=== PATIENT | female | born 1955 | race Caucasian/White ===

== ENCOUNTER 2017-12-02 22:06 | Emergency (ER) | payer OTHER ==
[2017-12-02] MEDS ORDERED: ACETAMINOPHEN 500 MG TAB PO ONE (22:32)
--- NOTE | 2017-12-02 22:33 | EDPHY ---
H & P Smoking Status: Never smoked Time Seen by Provider: 12/02/17 22:23 HPI/ROS: CHIEF COMPLAINT: Headache and elevated blood pressure HISTORY OF PRESENT ILLNESS: Patient is a 60-year-old female with a prior history of hypertension no longer taking medication here with complaint of headache starting approximately 2 hr prior to arrival in the emergency room. She did have a blood pressure cuff at home because of prior history of hypertension and checked her blood pressure was noted to be 200/100. Onset of the headache was gradual. She denies any numbness or weakness or associated chest pain. She does report that for the last week he has had left chest wall pain after twisting while lifting something and feeling a pop in the left side of her chest. She has no cardiac history other than hypertension including no history of diabetes, smoking, dyslipidemia. She has no history of aneurysms. She has no history of pulmonary embolism. REVIEW OF SYSTEMS: Constitutional: No fever, no chills. Eyes: No discharge. ENT: No sore throat. Cardiovascular: No chest pain, no palpitations. Respiratory: No cough, no shortness of breath. Gastrointestinal: No abdominal pain, no vomiting. Genitourinary: No hematuria. Musculoskeletal: No back pain. Skin: No rashes. Neurological: + headache. (Nabil Roth) Physical Exam: General Appearance: Alert and no distress. Eyes: Pupils equal and round no injection. Respiratory: Chest is nontender, lungs are clear to auscultation. Cardiac: regular rate and rhythm. Gastrointestinal: Abdomen is soft and nontender, no masses, bowel sounds normal. Musculoskeletal: Neck is supple and nontender. Extremities have full range of motion and are nontender. Skin: No rashes or lesions. (Nabil Roth) Constitutional: Initial Vital Signs Temperature (C) 36.5 C 12/02/17 22:10 Heart Rate 72 12/02/17 22:10 Respiratory Rate 16 12/02/17 22:10 Blood Pressure 188/91 H 12/02/17 22:10 O2 Sat (%) 96 12/02/17 22:10 O2 Delivery Mode Room Air Allergies/Adverse Reactions: No Known Allergies Allergy (Unverified 12/02/17 22:09) Home Medications: Medication Instructions Recorded NK [No Known Home Meds] 12/02/17 Medical Decision Making - Diagnostics Imaging Results: Imaging Impressions Chest X-Ray 12/02/17 22:31 IMPRESSION: No evidence for acute cardiopulmonary abnormality. Head CT 12/02/17 22:32 Impression: No evidence for acute intracranial abnormality. Minimal deep hemispheric white matter change can be seen with small vessel ischemic disease. Results called and discussed with Nabil Roth PA-C, at 12/02/2017 23:08. ED Course/Re-evaluation: 62-year-old female here with headache and elevated blood pressure. CT scan of the head reveals no acute mass or bleed. Given that this is done within 2 hr of the onset of her headache do feel she needs a lumbar puncture to rule out subarachnoid hemorrhage. She has no focal neurologic deficits on exam. EKG does show a bundle branch block but no ischemic changes. Troponin is negative for ACS. Her headache improved after treatment with migraine cocktail and her blood pressure came down to 165 systolic. She was discharged with primary care follow-up. (Nabil Roth) PHYSICIAN DOCUMENTATION: The patient was evaluated and managed by the Physician Managing Partner. My co- signature indicates that I have reviewed this chart and I agree with the findings and plan of care as documented. I am the secondary supervising physician. (Daija Cardozo) Differential Diagnosis: Subarachnoid hemorrhage, hypertensive urgency, ACS aortic dissection, brain mass (Nabil Roth) - Data Points Laboratory Results: Laboratory Results 12/02/17 22:40 12/02/17 22:40 12/02/17 12/02/17 12/02/17 22:52 22:40 22:40 WBC 7.62 10^3/uL 10^3/uL (3.80-9.50) RBC 4.92 10^6/uL 10^6/uL (4.18-5.33) Hgb 15.4 g/dL g/dL (12.6-16.3) Hct 46.2 % % (38.0-47.0) MCV 93.9 fL fL (81.5-99.8) MCH 31.3 pg pg (27.9-34.1) MCHC 33.3 g/dL g/dL (32.4-36.7) RDW 11.9 % % (11.5-15.2) Plt Count 263 10^3/uL 10^3/uL (150-400) MPV 9.1 fL fL (8.7-11.7) Neut % (Auto) 52.4 % % (39.3-74.2) Lymph % (Auto) 37.9 % % (15.0-45.0) [place] % (Auto) 7.5 % % (4.5-13.0) Eos % (Auto) 1.4 % % (0.6-7.6) Baso % (Auto) 0.5 % % (0.3-1.7) Nucleat RBC Rel Count 0.0 % % (0.0-0.2) Absolute Neuts (auto) 3.99 10^3/uL 10^3/uL (1.70-6.50) Absolute Lymphs (auto) 2.89 10^3/uL 10^3/uL (1.00-3.00) Absolute Monos (auto) 0.57 10^3/uL 10^3/uL (0.30-0.80) Absolute Eos (auto) 0.11 10^3/uL 10^3/uL (0.03-0.40) Absolute Basos (auto) 0.04 10^3/uL 10^3/uL (0.02-0.10) Absolute Nucleated RBC 0.00 10^3/uL 10^3/uL (0-0.01) Immature Gran % 0.3 % % (0.0-1.1) Immature Gran # 0.02 10^3/uL 10^3/uL (0.00-0.10) Sodium 141 mEq/L mEq/L (135-145) Potassium 3.8 mEq/L mEq/L (3.3-5.0) Chloride 106 mEq/L mEq/L (97-110) Carbon Dioxide 27 mEq/l mEq/l (22-31) Anion Gap 8 mEq/L mEq/L (8-16) BUN 18 mg/dL mg/dL (7-23) Creatinine 0.6 mg/dL mg/dL (0.6-1.0) Estimated GFR > 60 Glucose 117 mg/dL H mg/dL (70-100) Calcium 10.0 mg/dL mg/dL (8.5-10.4) Total Bilirubin 0.9 mg/dL mg/dL (0.1-1.4) AST 28 IU/L IU/L (14-46) ALT 25 IU/L IU/L (9-52) Alkaline Phosphatase 83 IU/L IU/L (38-126) POC Troponin I 0.02 ng/mL ng/mL (0.00-0.08) Total Protein 6.9 g/dL g/dL (6.3-8.2) Albumin 4.0 g/dL g/dL (3.5-5.0) Medications Given: Discontinued Medications Acetaminophen (Tylenol) 1,000 mg PO EDNOW ONE Stop: 12/02/17 22:33 Last Admin: 12/02/17 23:27 Dose: 1,000 mg Diphenhydramine HCl (Benadryl Injection) 12.5 mg IVP EDNOW ONE Stop: 12/02/17 22:58 Last Admin: 12/03/17 00:21 Dose: 12.5 mg Sodium Chloride (Ns) 1,000 mls @ 0 mls/hr IV EDNOW ONE; Wide Open PRN Reason: Protocol Stop: 12/02/17 22:58 Last Admin: 12/02/17 23:30 Dose: 1,000 mls Metoclopramide HCl (Reglan Injection) 10 mg IVP ONCE ONE Stop: 12/02/17 22:58 Last Admin: 12/03/17 00:23 Dose: 10 mg Metoprolol Tartrate (Lopressor Injection) 5 mg IVP EDNOW ONE Stop: 12/03/17 00:18 Last Admin: 12/03/17 01:22 Dose: Not Given Point of Care Test Results: Chemistry 12/02/17 22:52 POC Troponin I 0.02 ng/mL ng/mL (0.00-0.08) Departure - Departure Disposition: Home, Routine, Self-Care Clinical Impression: Elevated blood pressure reading, Headache Condition: Good Instructions: Chronic Hypertension (ED) Additional Instructions: Please follow up with her primary care doctor in 2-3 days and have her blood pressure recheck 10 to discuss possible medication for blood pressure. Additionally have worsening headache, numbness, dizziness or other worrisome symptoms return to the ER for further evaluation. Referrals: NONE *PRIMARY CARE P,. [Primary Care Provider] - As per Instructions [facility],. [Clinic] - As per Instructions
[2017-12-02] MEDS ORDERED: METOCLOPRAMIDE 10 MG/2 ML VIAL IVP ONE (22:57)
[2017-12-02] MEDS ORDERED: NS 1,000 ML IV ONE (22:57)
[2017-12-02 22:59] LABS: PLATELET COUNT 263 10^3/uL (150-400)
[2017-12-03] MEDS ORDERED: METOPROLOL TARTRATE 5 MG/5 ML INJ IVP ONE (00:17)
[2017-12-03 01:24] VITALS: BP 135/83
--- NOTE | 2017-12-03 08:16 | CPEKG ---
Test Reason : OPEN Blood Pressure : / mmHG Vent. Rate : 062 BPM Atrial Rate : 061 BPM P-R Int : 139 ms QRS Dur : 128 ms QT Int : 446 ms P-R-T Axes : 064 -80 029 degrees QTc Int : 453 ms Sinus rhythm Probable left atrial enlargement RBBB and LAFB Confirmed by Daija Cardzoo ([id number]) on 12/03/2017 8:15:35 AM Referred By: Confirmed By:Daija Cardozo
== END 2017-12-03 01:24 | disposition home or self-care (01) ==
DX: R51 Headache (principal); I10 Essential (primary) hypertension; E86.9 Volume depletion, unspecified
CPT/HCPCS: 84484-PO; 96374; J1200; J2765

== ENCOUNTER → 2017-12-19 | Outpatient (CLI) | payer OTHER | LOC: BRMIMAGING 08:22 | DX: N28.1 Cyst of kidney, acquired (principal); I10 Essential (primary) hypertension; Z79.899 Other long term (current) drug therapy | CPT/HCPCS: 76770-PO ==

== ENCOUNTER → 2018-06-04 | Outpatient (CLI) | payer BC, OTHER | LOC: BMCIMAGING 09:00 | DX: Z12.31 Encounter for screening mammogram for malignant neoplasm of breast (principal); Z80.3 Family history of malignant neoplasm of breast ==

== ENCOUNTER → 2018-07-21 | Outpatient (CLI) | payer BC, OTHER | LOC: FIMAGING 10:37 | PROVIDERS: ATTEND Physical Medicine & Rehabilitation | DX: M51.36 Other intervertebral disc degeneration, lumbar region (principal); M47.816 Spondylosis without myelopathy or radiculopathy, lumbar region ==